=== PATIENT | male | born 1950 | race Caucasian/White ===

== ENCOUNTER → 2016-07-13 | Outpatient (CLI) | payer OTHER, MEDICARE, BC ==
[~2016-07-13] MED LIST: ASCO1TAB36 PO; CALC-586 PO; IBUP200C42 PO; MULT-806 PO; OMEP40CA30 PO
== END ==
LOC: IMA 09:47
PROVIDERS: ATTEND Family Medicine
DX: M17.0 Bilateral primary osteoarthritis of knee (principal)